=== PATIENT | female | born 1955 | race American Indian/Alaskan Native ===

== ENCOUNTER 2020-04-20 12:44 | Outpatient (CLI) | payer OTHER ==
[2020-04-20 14:04] LABS: Alanine Aminotransferase 14 units/L (7-56); Albumin 3.9 g/dL (3.9-5); Blood Urea Nitrogen 18 mg/dL (7-17); Calcium 9.6 mg/dL (8.4-10.2); Hemolysis Index 3
[2020-04-20 14:22] LABS: BUN/Creatinine Ratio 26
[2020-04-24 00:24] LABS: Albumin 3.4 g/dL (3.8-4.8); Gamma Globulin 1.2 g/dL (0.8-1.7)
[2020-04-24 14:14] LABS: Vitamin D, 25-OH, D2 <4 ng/mL
== END 2020-04-20 12:45 | disposition home or self-care (01) ==
LOC: LAB 12:44
PROVIDERS: ATTEND Specialist
DX: E11.42 Type 2 diabetes mellitus with diabetic polyneuropathy (principal); G62.9 Polyneuropathy, unspecified; G65.1 Sequelae of other inflammatory polyneuropathy
CPT/HCPCS: 36415; 80053; 82306; 82607; 83036; 83921; 84165; 84443; 85652; 86038; 86334; 86592